=== PATIENT | female | born 1995 | race Asian ===

== ENCOUNTER 2018-10-04 20:26 | Inpatient (IN) | payer OTHER ==
--- NOTE | 2018-10-04 20:48 | EDPHY ---
H & P Time Seen by Provider: 10/04/18 20:35 HPI/ROS: CHIEF COMPLAINT: Suicidal ideation HISTORY OF PRESENT ILLNESS: 23-year-old female on a pre-hospital M1 hold from [facility] after she endorsed suicidal ideation with plan to jump off of the engineering building. She confirmed this on my interview with her. She denies suicidal attempt. Denies ingestion. Denies complaints of pain or trauma. PRIMARY CARE PROVIDER: REVIEW OF SYSTEMS: 10 systems reviewed and negative with the exception of the elements mentioned in the history of present illness PAST MEDICAL & SURGICAL HISTORY: No pertinent medical or surgical history SOCIAL HISTORY: [employer], [place] student PHYSICAL EXAM (Prior to examination, patient consented to physical exam, hands were washed and my usual and customary physical exam procedures followed) 1) GENERAL: Well-developed, well-nourished, alert and oriented. Appears to be in no acute distress. 2) HEAD: Normocephalic, atraumatic 3) HEENT: Pupils equal, round, reactive to light bilaterally. Sclera anicteric. 4) NECK: Full range of motion, no meningeal signs. 5) LUNGS: Clear auscultation bilaterally, no wheezes, no rhonchi, no retractions. 6) HEART: Regular rate and rhythm, no murmur, no heave, no gallop. 7) ABDOMEN: No guarding, no rebound, no focal tenderness, negative McBurney's, negative Alvarez's, negative Rovsing's, negative peritoneal sign, 8) MUSCULOSKELETAL: Moving all extremities, no focal areas of tenderness, no obvious trauma. No peripheral edema or discoloration. 9) BACK: No CVA tenderness, no midline vertebral tenderness, no fluctuance, no step-off, no obvious trauma, no visual or palpable abnormality. 10) SKIN: No rash, no petechiae. 11) Psychiatric: Patient is oriented X 3, there is no agitation. DIFFERENTIAL DIAGNOSIS: In no particular order including but not limited to depression, suicidal ideation, homicidal ideation (Kelsy,Mat Jessica) Constitutional: Initial Vital Signs Temperature (C) 36.3 C 10/04/18 20:35 Heart Rate 77 10/04/18 20:35 Respiratory Rate 16 10/04/18 20:35 Blood Pressure 108/84 H 10/04/18 20:35 O2 Sat (%) 96 10/04/18 20:35 O2 Delivery Mode Room Air Allergies/Adverse Reactions: No Known Allergies Allergy (Unverified 10/04/18 20:54) Home Medications: Medication Instructions Recorded NK [No Known Home Meds] 10/04/18 Medical Decision Making ED Course/Re-evaluation: 8:47 p.m.: Patient is on a pre-hospital mental health hold for suicidal ideation with plan to jump off of the engineering building on the [facility]. Care of patient under supervision of secondary supervising physician Dr Drake with whom I discussed case. 11:43 p.m.: Patient has been accepted for transfer to [facility] inpatient mental health services, accepting physician Dr. macias. EMTALA paperwork completed. (Mat Tierney) Other Provider: Signed out to Dr. Kitchen at 2300. On mental health hold psychiatric evaluation in progress. (Aaron Drake) - Data Points Laboratory Results: Laboratory Results 10/04/18 21:04 10/04/18 21:04 10/04/18 10/04/18 10/04/18 21:04 21:04 21:04 WBC RBC Hgb Hct MCV MCH MCHC RDW Plt Count MPV Neut % (Auto) Lymph % (Auto) Piatt % (Auto) Eos % (Auto) Baso % (Auto) Nucleat RBC Rel Count Absolute Neuts (auto) Absolute Lymphs (auto) Absolute Monos (auto) Absolute Eos (auto) Absolute Basos (auto) Absolute Nucleated RBC Immature Gran % Immature Gran # Platelet Estimate Hypochromasia Microcytic Cells Spherocytes Schistocytes Smear Review By Sodium 141 mEq/L mEq/L (135-145) Potassium 4.2 mEq/L mEq/L (3.5-5.2) Chloride 102 mEq/L mEq/L (97-110) Carbon Dioxide 26 mEq/l mEq/l (22-31) Anion Gap 13 mEq/L mEq/L (6-14) BUN 12 mg/dL mg/dL (7-23) Creatinine 0.7 mg/dL mg/dL (0.6-1.0) Estimated GFR > 60 Glucose 93 mg/dL mg/dL (70-100) Calcium 10.1 mg/dL mg/dL (8.5-10.4) Beta HCG, Qual NEGATIVE Salicylates < 1.0 mg/dL L mg/dL (2.0-20.0) Urine Opiates Screen NEGATIVE (NEGATIVE) Acetaminophen < 10 mcg/mL L mcg/mL (10-30) Urine Barbiturates NEGATIVE (NEGATIVE) Ur Phencyclidine Scrn NEGATIVE (NEGATIVE) Ur Amphetamine Screen NEGATIVE (NEGATIVE) U Benzodiazepines Scrn NEGATIVE (NEGATIVE) Urine Cocaine Screen NEGATIVE (NEGATIVE) U Marijuana (THC) Screen NEGATIVE (NEGATIVE) Ethyl Alcohol < 10 mg/dL mg/dL (0-10) 10/04/18 21:04 WBC 8.97 10^3/uL 10^3/uL (3.80-9.50) RBC 6.44 10^6/uL H 10^6/uL (4.18-5.33) Hgb 13.7 g/dL g/dL (12.6-16.3) Hct 44.0 % % (38.0-47.0) MCV 68.3 fL L fL (81.5-99.8) MCH 21.3 pg L pg (27.9-34.1) MCHC 31.1 g/dL L g/dL (32.4-36.7) RDW 15.9 % H % (11.5-15.2) Plt Count 254 10^3/uL 10^3/uL (150-400) MPV 12.3 fL H fL (8.7-11.7) Neut % (Auto) 70.6 % % (39.3-74.2) Lymph % (Auto) 21.9 % % (15.0-45.0) Piatt % (Auto) 5.0 % % (4.5-13.0) Eos % (Auto) 1.7 % % (0.6-7.6) Baso % (Auto) 0.6 % % (0.3-1.7) Nucleat RBC Rel Count 0.0 % % (0.0-0.2) Absolute Neuts (auto) 6.34 10^3/uL 10^3/uL (1.70-6.50) Absolute Lymphs (auto) 1.96 10^3/uL 10^3/uL (1.00-3.00) Absolute Monos (auto) 0.45 10^3/uL 10^3/uL (0.30-0.80) Absolute Eos (auto) 0.15 10^3/uL 10^3/uL (0.03-0.40) Absolute Basos (auto) 0.05 10^3/uL 10^3/uL (0.02-0.10) Absolute Nucleated RBC 0.00 10^3/uL 10^3/uL (0-0.01) Immature Gran % 0.2 % % (0.0-1.1) Immature Gran # 0.02 10^3/uL 10^3/uL (0.00-0.10) Platelet Estimate ADEQUATE (ADEQ) Hypochromasia 2+ H Microcytic Cells 2+ H Spherocytes 1+ H Schistocytes 1+ H Smear Review By Pending Sodium Potassium Chloride Carbon Dioxide Anion Gap BUN Creatinine Estimated GFR Glucose Calcium Beta HCG, Qual Salicylates Urine Opiates Screen Acetaminophen Urine Barbiturates Ur Phencyclidine Scrn Ur Amphetamine Screen U Benzodiazepines Scrn Urine Cocaine Screen U Marijuana (THC) Screen Ethyl Alcohol Departure - Departure Disposition: [facility] IP Clinical Impression: Suicidal ideation Condition: Good Referrals: NONE *PRIMARY CARE P,. [Primary Care Provider] - As per Instructions
[2018-10-04 21:41] LABS: PLATELET COUNT 254 10^3/uL (150-400)
--- NOTE | 2018-10-05 01:40 | ASMTTLCEVL ---
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 When I asked her if she was going to kill herslef or is she had a plan she skyler she did nto want to answer. Her counselor said she was very concerned for Delilah beause she had a plan." Pt stated, " I had a lot of mood swings and sometimes I get really sad. I will not commit suicide because I know the outcome is terrible." Pt states she has various stressors. Pt states she identifies as lesbian/transgender and her parents who are very latter day, do not support her lifestyle. Pt states her parents will send her "bible verses" and she stated, " They use bible verses as a weapon." Pt states her mother sends her videos on "how LGBT are bad.' Pt statetd she came out to her sister and her sister told her "I'm fine with it as long as you don't disclose." When asked if pt was currently endorsing SI, pt stated, "I am ok now." Diagnosis History Notes: Pt denied any dx hx. Prior suicide attempts Notes: Pt denied any prior suicide attempts. Prior hospitalizations Notes: Pt denied any prior hospitalizations. Treatment Responses Notes: N/A History of violence Notes: Pt denied anyHI. Therapist: Nora from [facility] Psychiatrist: None Medications (name, dosage, route, freq uency) Notes: None Allergies/Reaction Notes: Nka Sleep Notes: Pt stated she has irregular sleep schedule and stated she has difficulty getting to sleep at night. Appetite Notes: Wnl Medical/Surgical history Notes: Pt stated she has a blood disorder but doesn't know what it's called. Substance use history (frequency, intensity, his tory, duration) Notes: Pt denied any substance use hx any alcohol use. Utox was negative and bal was .0. Family composition Notes: Pt's parents are and live in [place]. Pt has a sister who lives in [place]. Pt stated she is not close with her parents. Need for family Answers: No participation in patient's care Family psychiatric/substance abuse history Notes: Pt stated she does not believe there is a hx of mental illneess or addiction in her family.Pt stated her mother " has intense mood swings." Developmental history Notes: Pt grew up in [place] and [place]. Pt stated he moved bacck and forth, studied in [place] and then went back to [place] and studied at a school there. Pt stated she speaks Kenyan, Hong Konger, Wallisian and Wolof. Pt stated when she was 15 years old, she ran away from her parents and stayed in [place], living with her grandparents.She said she left beause she had too much conflict with her mother. Pt lived withher grandparents for a year before her parents made her come back to [place]. Marital status/children Notes: Unmarried, no children. Living situation Notes: Pt lives in the dorms at Sexual history/orientation Notes: Pt identifies as lesbian/transgender. Pt stated she considered getting HRT but found out she has a blood disorder and this puts her at "high risk" Pt states she still wants to consider this option but will when she is able to pay for it on her own. Peer support/family strengths Notes: Pt stated she does not have a good support system.Pt states she doesn't feel like she has any frends. 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 Work history Notes: Pt is not working. Notes: None reported Legal Notes: None reported Church/Spiritual Notes: Pt stated, " I used to be Quaker but I'm taking a break because I am offendended because this relaigion has attacked a part of me." Leisure Notes: Unable to assess. Collateral Notes: None Patient's strengths Answers: Honest (Please select at least TWO strengths): Insightful Intelligent TLC Evaluation - Mental Status Exam Appearance: Answers: Unkempt Eye Contact: Answers: Appropriate for Culture Mood: Answers: Depressed Affect: Answers: Calm Guarded Behavior: Answers: Cooperative Crying Guarded Speech: Answers: Relevant Logical Clear Coherent Soft Thought Process: Answers: Organized Oriented Alert Intact Insight: Answers: Good Judgement: Answers: Fair Depression Answers: Sad Mood Signs/Symptoms: Hallucinations: Answers: None Pt reported to have Answers: No suicidal/self-injuring ideation/behavior? Pt reported to be making Answers: Yes suicidal/self-injuring threats? Pt reported to have Answers: No aggression/assault ideation/behavior? Pt reported to be making Answers: No aggression/assault threats? Pt exhibits inability to Answers: No care for self/grave disability? Ideation/behavior is Answers: Yes chronic? Patient has a specific Answers: Yes plan? Pt has access to means to Answers: Yes execute the plan? Ideation involves Answers: Yes serious/lethal intent? Ideation has Answers: No delusional/hallucinatory content? History of Answers: Yes suicidal/self-injuring ideation, behavior, or threats? History of Answers: No aggressive/assaultive ideation, behavior, or threats? History of serious Answers: No physical harm to self/others while in treatment setting? TLC Evaluation - Suicide/Homicide Risk Suicide Risk Factors: Answers: < 20 or > 40 Years of Age Inadequate Social Support Major Depression Homicide/violence risk Answers: None factors: Current Suicidal Answers: Yes Ideation? Current Suicide Ideation Pt declined to provide details Frequency: Current Suicidal Ideation Answers: Yes in the Past 48 Hours? Current Suicidal Ideation Answers: Yes in the Past Month? Suicide Internal Answers: Absence of Psychosis Protective Factors: Suicide External Answers: Positive Therapeutic Protective Factors: Relationships Ranking of patient's Answers: Severe suicidal risk: Ranking of patient's Answers: Low homicidal risk: TLC Evaluation - Wrap-up AXIS I Diagnosis (include DSM-V and ICD-10 codes), must also be entered in [employer], which is the source of truth. Notes: Major Depressive Disorder, single episode, severe 296.23 (F32.2) I n consultation with [facility] ED physician, Aaron Drake MD and on-call psychiatrist, Ivania Laughlin MD, both concurred that pt appears to meet 27-65 criteria requiring psychiatric hospitalization as pt appears to be at risk of harm to self due to a mental illness condition. Pt was read the Patient Rights and Responsibilities Statement on 10/04/18 at 23:00, original placed on chart, and was given photocopy of Rights. Pt declined to sign the Patient Rights. Pt was given the 3N prohibited belongings list while in the ED. Date Signed: 10/05/2018 01:39 AM Electronically Signed By:Malena Guido
--- NOTE | 2018-10-05 01:40 | ASMTTCLDSP ---
TLC Discharge Disposition Disposition: Answers: Admit Discharge Concerns/Recommendations: Notes: In consultation with [facility] ED physician, Aaron Drake MD and on-call psychiatrist, Ivania Laughlin MD, both concurred that pt appears to meet 27-65 criteria requiring psychiatric hospitalization as pt appears to be at risk of harm to self due to a mental illness condition. Pt was read the Patient Rights and Responsibilities Statement on 10/04/18 at 23:00, original placed on chart, and was given photocopy of Rights. Pt declined to sign the Patient Rights. Pt was given the 3N prohibited belongings list while in the ED. Was patient given the Answers: Yes Inpatient Behavioral Health Prohibited Belongings List while in the ED? For inpatient Ivania Laughlin MD admission, the following psychiatrist agreed to accept patient for admission to Behavioral Health ([facility]): Date Signed: 10/05/2018 01:40 AM Electronically Signed By:Malena Guido
[2018-10-05] MEDS ORDERED: LORazepam 0.5 MG TAB PO PRN (04:27)
[2018-10-05] MEDS ORDERED: NICOTINE POLACRILEX 2 MG GUM B PRN (04:27)
[2018-10-05] MEDS ORDERED: MAGNESIUM HYDROXIDE 30 ML UDCUP PO PRN (04:27)
[2018-10-05] MEDS ORDERED: MAG HYDROX/AL HYDROX/SIMETH 30 ML UDCUP PO PRN (04:27)
[2018-10-05] MEDS ORDERED: ACETAMINOPHEN 325 MG TAB PO PRN (04:27)
--- NOTE | 2018-10-05 08:48 | ASMTBHMTP ---
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 When I asked her if she was going to kill herself or if she had a plan she said she did not want to answer. Her counselor said she was very concerned for Delilah beause she had a plan." Pt stated, " I had a lot of mood swings and sometimes I get really sad. I will not commit suicide because I know the outcome is terrible." Pt states she has various stressors. Pt states she identifies as lesbian/transgender and her parents who are very jew, do not support her lifestyle. Pt states her parents will send her "bible verses" and she stated, " They use bible verses as a weapon." Pt states her mother sends her videos on "how LGBT are bad.' Pt statetd she came out to her sister and her sister told her "I'm fine with it as long as you don't disclose." When asked if pt was currently endorsing SI, pt stated, "I am ok now." Patient's stated presenting problems: Notes: "Cinthia is worried I would commit suicide. Patient's goals for treatment: Notes: This questioned was asked several times in different ways and In response to this question pt asked that she be called [place]. Patient's strengths: Notes: Pt denied that she had any strengths. Identify supports outside of hospital: Notes: Pt identifies her therapist Nora at [facility] and her physician at [facility], Dr Thrasher. Discharge criteria: Notes: Suicidal ideation will resolve and patient will have a plan to safely manage recurrent suicidal ideation. Initial disposition plan/considerations: Notes: Pt will return to live in her dorm at and will resume therapy with Nora at [facility]. Master Treatment Plan Required Signatures Psychiatrist signature: Answers: Psychiatrist: RN on-shift signature: Answers: RN: Patient signature: Answers: Patient: Date Signed: 10/05/2018 08:48 AM Electronically Signed By:Zahra Rockwell
--- NOTE | 2018-10-05 09:01 | ASMTCMCOM ---
CM Note CM Note Notes: Pt presented as calm with a flalt affect, soft voice and minimal responses. She did maintain eye-contact. Pt expressed her need to not be here, not to be on medications and to have her health record present her as "normal". She did verbalize, that if she did commit suicide, it would be by "jumping off of a building. She requested that she be called [facility]. Date Signed: 10/05/2018 09:00 AM Electronically Signed By:Zahra Rockwell
--- NOTE | 2018-10-05 10:06 | PDMN ---
Medical Necessity Medical necessity: [facility] [id number], Major Depressive Disorder, Adult: Inpatient Care , 3 days: 23 yo on M1 hold for major depressive d/o, single episode, severe, w/ suicidal ideation. Admit IP status to BEH unit.
--- NOTE | 2018-10-05 10:15 | BAPA ---
[f rep st] ADMISSION PSYCHIATRIC ASSESSMENT DATE OF SERVICE: 10/05/2018 CHIEF COMPLAINT: "I reported that I was having more depression and suicidal thoughts. They came looking for me on campus and found me, and I was placed on an M1 hold." HISTORY OF PRESENT ILLNESS: From the ED note dated 10/04/2018, patient placed on an M1 hold at the [facility] after endorsing suicidal ideation with plan to jump off the engineering building. Patient did confirm her plan with the interviewer during the ED evaluation. Patient denied any suicide attempt. From the [facility] evaluation dated 10/05/2018, patient was placed on a 72-hour M1 hold with start date and time of 10/05/2018, at 8:23 p.m. 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 Patient reports she identifies as lesbian transgender, and her parents are very oriental orthodox and do not support her lifestyle. Patient reports current psychiatric symptoms as depression symptoms, including depressed mood nearly all day every day, diminished interest in engaging in activity she typically enjoys, poor appetite , fatigue, loss of energy, feelings of worthlessness, inappropriate guilt, and recent suicidal ideation. Patient reports no history of abuse or trauma. Patient denies other psychiatric symptoms, including symptoms of meredith, anxiety, ADHD, OCD, PTSD, psychosis, and any other symptom of a psychiatric disorder. Patient reports current suicidal ideation with plan to jump off building. Patient denies current homicidal ideation and denies current self-injurious ideation. patient currently has a therapy services through [facility] at . Patient also sees primary care provider, Dr. Thrasher, through [facility]. Patient reports her therapist is Cinthia Conde from [facility]. PAST PSYCHIATRIC HISTORY: Patient reports no history of previous psychiatric diagnosis. No history of suicide attempt and no history of prior hospitalizations. Patient reports no history of violence. ALLERGIES: No known allergies. CURRENT MEDICATIONS: 1. Tylenol 650 mg p.o. q.4 hours p.r.n. 2. Ativan 0.5 to 1 mg p.o. q.6 hours p.r.n. 3. Maalox syrup 30 mL p.o. q.6 hours p.r.n. 4. Milk of Magnesia 30 mL p.o. daily p.r.n. PAST MEDICAL HISTORY: Patient reports she has a history of a blood disorder and reports she is unaware of the name of the blood disorder. Will continue to gather medical and surgical history throughout the course of the patient's hospitalization. SOCIAL HISTORY: Patient is not and has no children. Currently resides in the dorms at . Patient identifies as lesbian transgender. Patient reports she grew up in [place] and [place] and moved back and forth, studying in [place] and then back in [place] and studied at school there. Patient reports that at the age of 15 she ran away from her parents and stayed in [place], living with her grandparents. Patient reports she left due to conflict with her mother. The patient reports she did live with her grandparents for 1 year, and then her parents made her come back and live with them in [place]. The patient reports her parents are and currently live in [place]. Patient reports she has a sister who lives in [place]. 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 Patient describes not having a good support system and states she feels like she does not have any friends. Patient reports history of Sikhism as oriental orthodox, however reports, "I'm taking a break because I am offended because of this oriental orthodox has attacked a part of me." SUBSTANCE USE HISTORY: Patient denies history of substance and alcohol use. FAMILY PSYCHIATRIC HISTORY: Patient reports no family psychiatric history or substance use history. Patient reports no family history of suicide. ADMISSION LABS: 1. TSH 1.600. 2. Beta HCG qualitative test was negative. 3. Toxicology screen was negative for all substances screened. 4. Hemoglobin A1c is pending. 5. Lipid panel within normal limits, except VLDL cholesterol was elevated at 27. 6. Liver function tests within normal limits, except total protein was elevated at 9.3. Albumin was elevated at 5.3. 7. BMP within normal limits. 8. CBC within normal limits except red blood cells were elevated at 6.44. MCV was low at 68.3. MCH was low at 21.3. MCHC was low at 31.1. RDW was elevated at 15.9. MPV was elevated at 12.3. Hypochromasia elevated at 2+. Microcytic cells elevated at 2+, spherocytes elevated at 1+, and schistocytes were elevated at +1. MENTAL STATUS EXAM: The patient is a well-nourished female looking stated chronological age. Attire is appropriate. Dress is casual. Grooming status is appropriate. Ambulation is independent. Gait is normal and coordinated. Posture is normal and relaxed. Eye contact is appropriate and adequate. Motor activity is appropriate with purposeful, organized, coordinated movements with no involuntary movements noted. Attitude is cooperative and friendly. Patient appears attentive and relates well to this interviewer. Language production is spontaneous. Rate, rhythm, and volume are normal. Articulation is clear. Patient reports mood as "depressed" with constricted, flat, and congruent affect. Patient's thought process is linear and logical with no loose associations, tangential thought, thought blocking, concrete thinking, or any other signs of formal thought disorder. Patient does report suicidal thoughts with plan to jump from high place. Patient does not report homicidal thoughts, ideas, or plans. Patient denies auditory or visual hallucinations. Patient denies delusions. Patient does not appear to be attending to internal stimuli. Patient is oriented to person, place, time, and situation. Patient's attention and concentration are fair. Patient's insight and judgment are poor. There is no evidence of gross cognitive dysfunction at any point during the interview and no evidence of apparent dysfunction in recent or remote memory noted. DIAGNOSES: Based on the patient's history and current presentation, patient's diagnosis is major depressive disorder, severe. 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 Patient requires continued inpatient care because of current depression and suicidal ideation with plan to jump from a high place. Patient presents with problems of increased depression and suicidal ideation. Patient has a past psychiatric history of depression and is currently not being treated with psychotropic medications. Patient reports she is not interested in a trial of an antidepressant at this time. Patient is a high suicide safety risk due to current depression and suicidal ideation with plan to jump from a high place. Protective factors while hospitalized include ongoing safety checks, active involvement in treatment, and support from our treatment team. Patient could benefit from inpatient hospitalization for safety, crisis stabilization, and medication evaluation. PLAN: 1. Medications. Patient reports she is not interested in a trial of an antidepressant at this time. Will continue to monitor and evaluate and educate the patient on the benefits of antidepressants. No other medication changes at this time as more time is needed to determine ongoing tolerability and efficacy. Plan is to continue to observe patient for response and side effects from medications, and ongoing monitoring and evaluation. 2. Review with patient informed consent and recommendations for psychotropic medication treatment listed below 3. Labs: no additional labs at this time 4. Therapy: continue milieu and group therapy 5. Further investigation including gathering information from patients relatives and review of past case records to inform treatment plan. 6. Safety/Wellness plan and follow-up outpatient appointments to be established prior to discharge. Next steps are for patient to meet with career agent to plan a safe discharge plan and establish outpatient services for ongoing treatment. 7. Confer with inpatient treatment team regarding treatment plan. 8. Address psychosocial stressors by meeting with residential child care counselor to establish discharge plan including referrals for outpatient services. 9. Legal status: M1 10. Consider discharge on Wednesday if patient is in stable condition, safe, and has a safe discharge plan. ESTIMATED LENGTH OF STAY: 1-3 days PSYCHOTROPIC MEDICATION TREATMENT INFORMED CONSENT and RECOMMENDATIONS: Review nature of condition, diagnosis, and prognosis. Review nature and purpose of psychotropic medication treatment. Review type of psychotropic medications being ordered. Review risk and benefits of psychotropic medication treatment. Review probable length of time will need to take medications. Review risk and benefits of not undergoing psychotropic medication treatment. Review alternative treatments to psychotropic medications. Review psychotropic medications contraindications, drug-drug interactions, side effects, and importance of reporting any side effects to a psychiatric provider or nurse during inpatient hospitalization, and upon discharge to patients psychiatric outpatient provider, primary care provider, or other health primary care sales representative. Review importance of asking a nurse, psychiatric provider, or primary care provider any questions or problems concerning the psychotropic medications. Verify patient understands the information that has been provided, and understands, accepts, and agrees to psychotropic medications. Review patients safety plan and importance of patient to communicate to staff while hospitalized if patient is ever a danger to self/others, or unable to care for self, and upon discharge, the importance for patient to contact [facility] or [facility], or go to the nearest emergency room, if patient is ever a danger to self/others, or unable to care for self. Recommend that upon discharge patient establish medication management treatment with a psychiatric provider, establishes routine therapy appointments, and follow-up with primary care provider. Verify patient understands and agrees to these recommendations. /[id number]/MODL MTDD
--- NOTE | 2018-10-05 12:03 | ASMTCMCOM ---
CM Note CM Note Notes: CC called and left a message for Cinthia Silver at [facility]; pt identified her as her therapist. A message was left requesting a next appt date. This call back number was given. Upon d/c pt is planning to return to the dorms and to continue to see Cinthia in therapy. She does not want her parents contacted. Date Signed: 10/05/2018 12:02 PM Electronically Signed By:Zahra Rockwell
--- NOTE | 2018-10-05 12:18 | ASMTCMCOM ---
CM Note CM Note Notes: PT informed this CC that she is willing to have it be confirmed that she is in this hospital and that she is safe. That is the extent of the information and it is only to be supplied if they call here. JG in chart. D/C Plan: Return to [facility] and seeing Cinthia Silver at [facility] Date Signed: 10/05/2018 12:18 PM Electronically Signed By:Zahra Rockwell
--- NOTE | 2018-10-05 12:43 | ASMTCMCOM ---
CM Note CM Note Notes: Cinthia Silver from [facility] called to speak about pt. Cinthia has been seeing pt regularly due to her being in crisis, but not having a therapist in the community that she can see regularly. Pt's parents "shame" her for her identity as "transgender/lesbian" and thi has caused pt to be reluctant to seek therapy utilizing their insurance. Cinthia and pt have been researching availability in the community and have identified [facility] as a potential resource for low fee counseling. Cinthia asked that while the pt is here we continue that conversation with her. Pt does have an appt with Cinthia on Wednesday, October 10 at 1:00PM. Per Nora, pt's parents were "making" her fly home this weekend. Pt asked for their phone number so that she could tell them to cancel her flight; Nora provided the number and it was given to pt. D/C Plan: Pt to return to dorms, see Nora Silver 10/10/18. Date Signed: 10/05/2018 12:42 PM Electronically Signed By:Zahra Rockwell
--- NOTE | 2018-10-05 15:54 | PDCONSULT ---
Supervisor General Note: Chief complaint/HPI- patient was brought in for concerns of suicidal ideation. Patient is very quiet not particularly willing to discuss why she was brought in. She does deny any self-injurious behavior. Currently feels sleepy but has no complaints. Past medical history None Past surgical history None Social history Does not drink alcohol use drugs or consume tobacco Family history Patient denied any family history Allergies No known drug allergies Current medications Patient denies any use of any medication Review of symptoms Ten point review systems is negative except as noted in HPI Examination Vitals; blood pressure is 108/84, respirations 16, heart rate 77, oxygen saturation 96% on room air, temperature 36.3 degrees C General- 23-year-old female in no acute distress HEENT-PERRLA, mucous membranes moist pink and acyanotic, head is atraumatic normocephalic Lungs are clear to auscultation bilaterally Cardiovascular-regular rhythm and rate no murmurs rubs gallops Abdomen-soft nontender nondistended in all 4 quadrants no organomegaly -no CVA tenderness Extremities-no clubbing cyanosis edema or calf pain Neuro-cranial nerves 2-12 grossly intact no focal neurologic deficits Psych- mood and affect are appropriate Skin-no lesions rashes or ecchymosis Assessment plan 23-year-old female with no past medical history admitted for evaluation of suicidal ideation Medically patient has no acute issues and is clear from a medical perspective for further evaluation for acute psychiatric illness
--- NOTE | 2018-10-06 09:22 | SOAPPROG ---
SOAP Progress Note Assessment/Plan: Assessment: Major Depressive Disorder, Severe, with anxious distress. Improvement noted. ( see subjective/objective note). Patient could benefit from continued inpatient hospitalization for crisis stabilization, safety, and medication evaluation. Consider discharge tomorrow. Plan: 1. Psychotropic medications: After reviewing options, risks, and benefits, patient reports she is not interested in medications. 2. Review with patient informed consent and recommendations for psychotropic medication treatment listed below 3. Labs: no additional at this time 4. Therapy: continue milieu and group therapy 5. Further investigation including gathering information from patients relatives and review of past case records to inform treatment plan. 6. Safety/Wellness plan and follow-up outpatient appointments to be established prior to discharge. Next steps are for patient to meet with career coordinator to plan a safe discharge plan and establish outpatient services for ongoing treatment. 7. Confer with inpatient treatment team regarding treatment plan. 8. Psychosocial stressors addressed through family preservation caseworker. 9. Legal status: M1 10. Consider discharge Wednesday if patient is in stable condition, safe, and has a safe discharge plan. PSYCHOTROPIC MEDICATION TREATMENT INFORMED CONSENT and RECOMMENDATIONS: Review nature of condition, diagnosis, and prognosis. Review nature and purpose of psychotropic medication treatment. Review type of psychotropic medications being ordered. Review risk and benefits of psychotropic medication treatment. Review probable length of time patient will need to take medications. Review risk and benefits of not undergoing psychotropic medication treatment. Review alternative treatments to psychotropic medications. Review psychotropic medications contraindications, drug-drug interactions, side effects, and importance of reporting any side effects to a psychiatric provider or nurse during inpatient hospitalization, and upon discharge to patients psychiatric outpatient provider, primary care provider, or other health director of medicare. Review importance of asking a nurse, psychiatric provider, or primary care provider any questions or problems concerning the psychotropic medications. Verify patient understands the information that has been provided, and understands, accepts, and agrees to psychotropic medications. Review patients safety plan and importance of patient to report to staff while hospitalized if patient is ever a danger to self/others, or unable to care for self, and upon discharge, the importance for patient to contact [facility] or [facility], or go to the nearest emergency room, if patient is ever a danger to self/others, or unable to care for self. Recommend that upon discharge patient establish medication management treatment with a psychiatric provider, establishes routine therapy appointments, and follow-up with primary care provider. Verify patient understands and agrees to these recommendations. 10/06/18 09:21 Subjective: Following up with patient for evaluation of mood and safety. Patient reports, "I am feel better. My uncle visited me yesterday." Patient expresses the following psychiatric symptoms mild depression. Patient denies SI, and reports , "I am okay." Patient agrees to call her uncle to see if he is available to meet for family meeting tomorrow prior to her discharging. Objective: Vital Signs Temp Pulse Resp BP Pulse Ox 36.6 C 64 15 96/54 L 94 10/06/18 06:00 10/06/18 06:00 10/06/18 06:00 10/06/18 06:00 10/06/18 06:00 MSE: The patient is a well-nourished female looking stated chronological age. Attire is appropriate dress is casual. Grooming status is appropriate. Ambulation is independent. Gait is normal and coordinated. Posture is normal. Eye contact is appropriate. Motor activity is appropriate with purposeful, organized, coordinated movements; with no involuntary movements. Attitude is cooperative. Patient appears attentive and relates well to this interviewer. Language production is spontaneous. R/R/V normal. Articulation is clear. Patient reports mood as okay with flat and incongruent affect. Patients thought process is linear and logical with no signs of thought disorder. Patient does not report suicidal/homicidal thoughts, ideas, or plans. Patient denies auditory, visual hallucinations. Patient denies delusions. Patient does not appear to be attending to internal stimuli. Patients attention and concentration are fair. Patient is oriented to person, place, time. Patients insight is poor. Patients judgment is poor. - Time Spent With Patient Time Spent With Patient: 15 minutes, met with patient individually. - Pending Discharge Pending Discharge Within 24 Hours: No Pending Discharge Within 48 Hours: No ICD10 Worksheet Patient Problems: Problems Problem Status Onset Suicidal ideation Acute
--- NOTE | 2018-10-06 13:34 | ASMTCMCOM ---
CM Note CM Note Notes: The patient reported feeling "ok;" "I'm a 4/7." The patient did not elaborate. Zelalem notified family that Zelalem was hospitalized; Zelalem reported that they were "angry" that the patient "sees a counselor" and believe the patient "over exaggerated". This speech writer discussed [facility] services with the patient. Date Signed: 10/06/2018 01:33 PM Electronically Signed By:Peyton Bonilla
[2018-10-07 06:47] VITALS: BP 98/55
--- NOTE | 2018-10-07 15:17 | BDS ---
[f rep st] BEHAVIORAL HEALTH DISCHARGE SUMMARY REASON FOR ADMISSION: From note dated 10/04. The patient was placed on a M1 hold at [facility] after endorsing suicidal ideation with plan to jump off the building. The patient was admitted involuntarily on an M1 hold for being a danger to self. The patient was admitted for safety, crisis stabilization, and medication management. ADMITTING DIAGNOSES: Major depressive disorder, severe. ADMISSION PHYSICAL EXAM: Patient was seen on 10/05/2018, for history and physical consultation medical clearance for inpatient psychiatric hospitalization and treatment. The patient was medically cleared for inpatient psychiatric hospitalization and treatment. For further details, please refer to window covering sales consultant note dated October 05. ADMISSION LABS: 1. CBC noncontributory. 2. BMP noncontributory. 3. Hemoglobin A1c 5.4. 4. Liver function noncontributory. 5. Lipid panel within normal limits except VLDL cholesterol was elevated at 27. 6. TSH within normal limits at 1.600. 7. Beta-hCG qualitative test negative. 8. Toxicology screen negative for all the substances that were screened and negative for ethyl alcohol. HOSPITAL COURSE: The most prominent symptoms and behaviors while the patient was here were reports of moderate depression. The patient was also withdrawn upon admission. Treatment modalities utilized were therapy. Patient has improved considerably with no signs of psychiatric symptoms and no psychiatric symptoms expressed. Patient reports she has improved since admission, states to be in stable condition, feels safe to discharge, and she contracts for safety. Patients response to treatment was good. There were no adverse or unexpected results of treatment. The patient was safe throughout stay, active in treatment, engaged in groups, and was appropriate with staff. Patient met with treatment team prior to discharge to assess readiness to discharge and review discharge plan. The treatment team consensus is the patient in stable condition, has a safe discharge plan, and is ready to discharge today. CONDITION AT DISCHARGE: Patient is in stable condition and is no longer a danger to self or others, and is not gravely disabled due to mental illness. Patient is no longer in need of inpatient level of care, and can be safely and effectively treated within the community. The patients level of risk at time of discharge is low. MSE: The patient is casually dressed and with good hygiene , and looks stated age. Patient is sitting, posture is upright, and position is relaxed. Patient appears awake, alert, and responds appropriately and reasonably during interview. Patient is engaged, relates well to interviewer, and emotional facial expression is appropriate to situation and changes appropriately with topic. Patient is cooperative, makes comfortable eye contact , and movements are voluntary, deliberate, coordinated, and smooth and even with no inappropriate movements. Patient makes laryngeal sounds effortlessly and shares conversation appropriately; pace of conversation is appropriate, and stream of talking is fluent; articulation is clear and understandable; word choice is effortless and appropriate for education level; completes sentences, occasionally pausing to think; rate and volume are appropriate for interview and setting. Patient reports mood as euthymic. Patients affect is stable with full variable range, congruent with mood, and appropriate to speech and circumstances. Patient has linear and logical thinking, with no loose associations, tangential thought, thought blocking, concrete thinking, or any other signs of formal thought disorder. Patient denies suicidal and homicidal ideation, and denies hallucinations and delusions. Patient appears to be a reliable historian with sound judgement and good insight into current condition. Patient has no apparent dysfunction in recent or remote memory noted , and no evidence of gross cognitive dysfunction noted at any point during the interview. DISCHARGE DIAGNOSIS: Major depressive disorder, severe. CURRENT MEDICATIONS: None. The patient reported during the course of her hospitalization, she was not interested in psychotropic medications. DISPOSITION: Patient left hospital independently and voluntarily with her uncle. 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 FOLLOWUP: palliative care coordinator reports the appropriate outpatient follow-up services have been established and outpatient appointments have been scheduled. The patient received written instructions with times and dates of outpatient follow-up appointments. LEGAL COURSE: The patient was admitted on an M1 hold for involuntary inpatient psychiatric hospitalization treatment. Patient discharged today independently and voluntarily. ATTITUDE AT TIME OF DISCHARGE: The patients attitude was positive at time of discharge, and patient reports looking forward to discharging today. The patient reports she feels safe to discharge, is no longer a danger to herself or others, is in stable condition, and contracts for safety. LABS AND STUDIES: There were no pending labs or studies at time of discharge. ADVANCE DIRECTIVES: There were no advance directives on file. The patient was full code during this hospitalization. /[id number]/[id number]
== END 2018-10-07 12:52 | disposition home or self-care (01) | DRG 885 ==
LOC: BBEH 10-05 00:20
PROVIDERS: ADMIT Psychiatry & Neurology Behavioral Neurology & Neuropsychiatry; ATTEND Psychiatry & Neurology Behavioral Neurology & Neuropsychiatry
DX: F33.3 Major depressive disorder, recurrent, severe with psychotic symptoms (principal)
CPT/HCPCS: 80305; G0480